=== PATIENT | female | born 1990 | race Caucasian/White ===

== ENCOUNTER 2022-12-12 13:30 | Inpatient (IN) | payer OTHER ==
[~2022-12-12] VITALS: Ht 157.5 cm; Wt 3.2 kg
[2022-12-25] MEDS ORDERED: PRENATAL TABLE1 EAC1 PO (14:18)
== END 2022-12-29 13:35 | disposition home or self-care (01) | DRG 788 ==
LOC: OB/GYN 12-22 13:30 → LDR 12-25 13:42 → O/R 12-26 16:16 → OB/GYN 12-26 17:30
PROVIDERS: ADMIT Obstetrics & Gynecology; ATTEND Obstetrics & Gynecology
PROC: 4A1HXCZ Monitoring of Products of Conception, Cardiac Rate, External Approach (ICD-10-PCS; 2022-12-25)
PROC: 10D00Z1 Extraction of Products of Conception, Low, Open Approach (ICD-10-PCS; principal; 2022-12-26 17:15)
DX: O33.8 Maternal care for disproportion of other origin (principal); Z3A.40 40 weeks gestation of pregnancy; Z37.0 Single live birth; Z20.822 Contact with and (suspected) exposure to COVID-19

== ENCOUNTER 2022-12-12 14:34 | Outpatient (CLI) | payer OTHER | END 2022-12-12 15:50 | disposition home or self-care (01) | LOC: NST 14:34 | PROVIDERS: ATTEND Obstetrics & Gynecology Maternal & Fetal Medicine | DX: Z34.83 Encounter for supervision of other normal pregnancy, third trimester (principal) ==

== ENCOUNTER 2022-12-20 16:24 | Outpatient (CLI) | payer OTHER | END 2022-12-20 16:48 | disposition home or self-care (01) | LOC: NST 16:24 | PROVIDERS: ATTEND Obstetrics & Gynecology Gynecology | DX: Z34.83 Encounter for supervision of other normal pregnancy, third trimester (principal) ==